=== PATIENT | male | born 1955 | race Caucasian/White ===

== ENCOUNTER 2022-05-28 15:10 | Outpatient (CLI) | payer OTHER | END 2022-05-28 15:11 | disposition home or self-care (01) | LOC: CSHWCC 15:10 | PROVIDERS: ATTEND Preventive Medicine Undersea and Hyperbaric Medicine | DX: I87.311 Chronic venous hypertension (idiopathic) with ulcer of right lower extremity (principal); L97.818 Non-pressure chronic ulcer of other part of right lower leg with other specified severity; S81.802D Unspecified open wound, left lower leg, subsequent encounter; R60.0 Localized edema | CPT/HCPCS: 97139; G0463; 99213 ==

== ENCOUNTER 2022-07-24 14:15 | Outpatient (CLI) | payer OTHER | END 2022-07-24 14:16 | disposition home or self-care (01) | LOC: CSHWCC 14:15 | PROVIDERS: ATTEND Preventive Medicine Undersea and Hyperbaric Medicine | DX: R60.0 Localized edema (principal) | CPT/HCPCS: 97139; G0463; 99212 ==